=== PATIENT | male | born 1970 ===

== ENCOUNTER → 2023-11-10 | Outpatient (CLI) | payer OTHER | END | disposition home or self-care (01) | LOC: RADMN 14:14 | PROVIDERS: ATTEND Family Medicine | DX: Z12.2 Encounter for screening for malignant neoplasm of respiratory organs (principal); M47.814 Spondylosis without myelopathy or radiculopathy, thoracic region; R91.1 Solitary pulmonary nodule | CPT/HCPCS: 71250 ==